=== PATIENT | female | born 1980 | race Caucasian/White ===

== ENCOUNTER 2016-11-10 16:13 | Emergency (ER) | payer OTHER ==
[~2016-11-10] VITALS: Wt 68.0 kg
[~2016-11-10 16:13] MED LIST: ALBUTEROL2.5 MG/0.5 INH; AMOXICILLIN500 M2 PO; CIPRO500 MG PO; CLINDAMYCIN HC300 MG PO; MIRENA52 MG IU; NAPROSYN500 MG PO; NEURONTIN300 MG PO; PREDNISONE20 M1 PO; PYRIDIUM100 MG PO; PYRIDIUM200 M1 PO; ROBITUSSIN DM 105 ML PO; SUBOXONE 8 MG-1 EACH SL
[2016-11-10 17:17] LABS: BILIRUBIN NEGATIVE (NEGATIVE); BLOOD NEGATIVE (NEGATIVE); CLARITY SL CLOUDY (CLEAR); COLOR YELLOW (YELLOW); GLUCOSE NEGATIVE (NEGATIVE); KETONE NEGATIVE (NEGATIVE); LEUKO ESTERASE 1+ (NEGATIVE); NITRITE NEGATIVE (NEGATIVE); PH 7.5 (5.0-9.0); PROTEIN NEGATIVE (NEGATIVE)
[2016-11-10 17:35] LABS: MUCOUS 1+; URINE REFLEX COMMENT YES (NO)
[2016-11-10] MEDS ORDERED: Zofran4 MG PO (18:14)
== END 2016-11-10 18:23 | disposition home or self-care (01) ==
LOC: ED 16:13
PROVIDERS: Nurse Practitioner Family
DX: Z20.2 Contact with and (suspected) exposure to infections with a predominantly sexual mode of transmission (principal); F17.200 Nicotine dependence, unspecified, uncomplicated; Z88.1 Allergy status to other antibiotic agents; Z88.2 Allergy status to sulfonamides

== ENCOUNTER 2016-11-26 11:07 | Inpatient (IN) | payer OTHER ==
[~2016-11-26] VITALS: Ht 170.2 cm; Wt 73.5 kg
--- NOTE | ~2016-11-26 | EKG ---
[place], [place] ELECTROCARDIOGRAM REPORT NAME: DESIREE MCDONNELL UNIT #: [id number] ROOM: 412 DOCTOR: ANA OLSON MD BIRTHDATE: [birth year] DOS: 11/26/2016 TIME: 14:57 FINDINGS: 1. Sinus rhythm with sinus arrhythmia and sinus bradycardia at a rate of 45. 2. Nonspecific mid precordial T wave abnormalities. 3. Abnormal electrocardiogram. ANA OLSON MD CM:EKGRPT:ELECTROCARDIOGRAM REPORT [id number] ANA OLSON MD
[~2016-11-26 11:07] MED LIST changes: +Zofran4 MG PO
[2016-11-26 12:00] VITALS: BP 120/89
[2016-11-26 12:21] LABS: BASO % 0.3 % (0.0-1.0); EOS % 0.7 % (1.0-4.0); HEMATOCRIT 42.1 % (37.0-47.0); HEMOGLOBIN 13.7 g/dl (12.0-16.0); LYMPH # 1.6 10*3/uL (1.3-4.4); LYMPH % 26.7 % (27.0-41.0); MEAN CELL VOLUME 84.4 fl (81.0-99.0); MEAN CORPUSCULAR HGB 27.5 pg (27.0-31.0); MEAN CORPUSCULAR HGB CONC 32.5 g/dl (33.0-37.0); MEAN PLATELET VOLUME 11.9 fl (9.6-12.3); MONO # 0.4 10*3/uL (0.1-1.0); MONO % 7.5 % (3.0-9.0); NEUT # 3.8 10*3/uL (2.3-7.9); NEUT % 64.6 % (47.0-73.0); PLATELET COUNT AUTOMATED 119 10*3/uL (130-400); RED BLOOD COUNT 4.99 10*6/uL (4.10-5.10); RED CELL DISTRI WIDTH 13.2 % (0-14.5); WHITE BLOOD COUNT 5.9 10*3/uL (4.8-10.8)
[2016-11-26 12:35] LABS: ALBUMIN 3.9 gm/dl (3.1-4.5); ALKALINE PHOSPHATASE 97 U/L (45-117); BILIRUBIN, TOTAL 0.4 mg/dl (0.2-1.0); BUN 15 mg/dl (7-24); CARBON DIOXIDE 24 mmol/L (21-32); CHLORIDE 105 mmol/L (98-107); EST GLOM FILT AFRICAN AMERICAN > 60 ml/min; GLUCOSE 107 mg/dL (65-99); POTASSIUM 4.3 mmol/L (3.5-5.1); SGOT/AST 8 IU/L (3-35); SGPT/ALT 18 U/L (12-78); SODIUM 137 mmol/L (136-145); TOTAL PROTEIN 8.7 gm/dL (6.4-8.2)
[2016-11-26 12:37] LABS: PROTHROMBIN TIME 10.9 SECONDS (9.0-12.4)
[2016-11-26 13:51] LABS: BILIRUBIN NEGATIVE (NEGATIVE); BLOOD NEGATIVE (NEGATIVE); CLARITY SL CLOUDY (CLEAR); COLOR YELLOW (YELLOW); GLUCOSE NEGATIVE (NEGATIVE); KETONE NEGATIVE (NEGATIVE); LEUKO ESTERASE 1+ (NEGATIVE); NITRITE NEGATIVE (NEGATIVE); PROTEIN NEGATIVE (NEGATIVE); UROBILINOGEN 0.2 E.U./dl (0.2-1.0)
[2016-11-26 13:58] LABS: URINE AMPHETAMINES < 1000 (1000ng/ml); URINE BARBITURATES < 200 (200ng/ml); URINE COCAINE < 300 (300ng/ml)
[2016-11-26 14:04] LABS: BACTERIA TRACE; EPITHELIAL CELLS 40-45; RBC 0-2 rbc/hpf (0-2); URINE REFLEX COMMENT YES (NO)
[2016-11-26 16:00] VITALS: BP 110/73
[2016-11-26 20:00] VITALS: BP 122/61
[2016-11-27] VITALS: BP 100/51
[2016-11-27 07:07] LABS: HIV 1+2 AB + HIV1 P24 AG Non Reactive (Non Reactive)
[2016-11-27 08:00] VITALS: BP 109/58
[2016-11-27 12:00] VITALS: BP 96/58
[2016-11-27 16:00] VITALS: BP 101/55
== END 2016-11-27 18:00 | disposition left against medical advice (07) | DRG 894 ==
LOC: 4E 11:07
PROVIDERS: Internal Medicine
DX: F11.23 Opioid dependence with withdrawal (principal); D69.6 Thrombocytopenia, unspecified; N39.0 Urinary tract infection, site not specified; F13.239 Sedative, hypnotic or anxiolytic dependence with withdrawal, unspecified; F10.239 Alcohol dependence with withdrawal, unspecified; Y90.9 Presence of alcohol in blood, level not specified; G25.81 Restless legs syndrome; F41.9 Anxiety disorder, unspecified; J34.89 Other specified disorders of nose and nasal sinuses; R73.9 Hyperglycemia, unspecified; F14.10 Cocaine abuse, uncomplicated; B18.2 Chronic viral hepatitis C; J45.909 Unspecified asthma, uncomplicated; Z72.0 Tobacco use; Z82.49 Family history of ischemic heart disease and other diseases of the circulatory system; Z88.1 Allergy status to other antibiotic agents; Z79.899 Other long term (current) drug therapy; Z71.6 Tobacco abuse counseling

== ENCOUNTER 2017-01-01 20:26 | Emergency (ER) | payer OTHER ==
[~2017-01-01] VITALS: Ht 170.1 cm; Wt 68.0 kg
[2017-01-01] MEDS ORDERED: BUPRENORPHINE HY8 MG SL (20:53)
[2017-01-01] MEDS ORDERED: PAIN & FEVER R325 MG PO (21:12)
== END 2017-01-01 23:24 | disposition home or self-care (01) ==
LOC: ED 20:26
DX: O92.6 Galactorrhea (principal); R51 Headache; I77.6 Arteritis, unspecified; F17.200 Nicotine dependence, unspecified, uncomplicated; F41.9 Anxiety disorder, unspecified; J45.909 Unspecified asthma, uncomplicated; Z88.1 Allergy status to other antibiotic agents; Z88.2 Allergy status to sulfonamides

== ENCOUNTER 2017-04-29 17:23 | Emergency (ER) | payer OTHER ==
[~2017-04-29] VITALS: Ht 167.6 cm; Wt 72.6 kg
--- NOTE | ~2017-04-29 | EKG ---
[place], [place] ELECTROCARDIOGRAM REPORT NAME: DESIREE MCDONNELL UNIT #: [id number] ROOM: DOCTOR: TANGELA SANABRIA MD BIRTHDATE: [birth year] DOS: 04/29/2017 TIME: 1739 hours. Normal sinus rhythm at 84 beats per minute. The tracing is normal. No previous tracing is available for comparison. TANGELA SANABRIA MD Calli Rider NP CM:EKGRPT:ELECTROCARDIOGRAM REPORT [phone] TANGELA SANABRIA MD
[~2017-04-29 17:23] MED LIST changes: +BUPRENORPHINE HY8 MG SL; +PAIN & FEVER R325 MG PO
[2017-04-29] MEDS ORDERED: SUBOXONE 8 MG-1 EACH SL (17:36)
[2017-04-29 17:54] LABS: BASO % 0.2 % (0.0-1.0); EOS # 0.1 10*3/uL (0.0-0.4); EOS % 1.9 % (1.0-4.0); HEMATOCRIT 41.5 % (37.0-47.0); HEMOGLOBIN 13.9 g/dl (12.0-16.0); LYMPH # 1.5 10*3/uL (1.3-4.4); MEAN CELL VOLUME 83.7 fl (81.0-99.0); MEAN CORPUSCULAR HGB CONC 33.5 g/dl (33.0-37.0); MEAN PLATELET VOLUME 11.9 fl (9.6-12.3); MONO # 0.4 10*3/uL (0.1-1.0); MONO % 8.7 % (3.0-9.0); NEUT # 2.7 10*3/uL (2.3-7.9); PLATELET COUNT AUTOMATED 81 10*3/uL (130-400); RED BLOOD COUNT 4.96 10*6/uL (4.10-5.10); RED CELL DISTRI WIDTH 13.2 % (0-14.5); WHITE BLOOD COUNT 4.7 10*3/uL (4.8-10.8)
[2017-04-29 18:04] LABS: ACT PARTIAL THROMBO TIME 29.5 SECONDS (20.8-31.5); INTERNATIONAL NORM RATIO 1.1 (2.0-3.5)
[2017-04-29 18:18] LABS: ALBUMIN 3.5 gm/dl (3.1-4.5); ALKALINE PHOSPHATASE 143 U/L (45-117); BUN 14 mg/dl (7-24); CHLORIDE 102 mmol/L (98-107); CKMB 0.5 ng/ml (0.5-3.6); CPK 61 U/L (26-192); LIPASE 73 U/L (73-393); MAGNESIUM 1.5 mg/dL (1.5-2.1); POTASSIUM 3.9 mmol/L (3.5-5.1); SGOT/AST 75 IU/L (3-35); SGPT/ALT 164 U/L (12-78); SODIUM 136 mmol/L (136-145); TOTAL PROTEIN 7.6 gm/dL (6.4-8.2)
[2017-04-29 18:20] LABS: BETA-HCG, QUANT < 1.0 mIU/mL (1-3); TROPONIN I < 0.015 ng/ml (<0.045)
[2017-04-29] MEDS ORDERED: PEPCID20 MG PO (19:03)
[2017-04-29] MEDS ORDERED: PREDNISONE20 M1 PO (19:03)
== END 2017-04-29 19:37 | disposition home or self-care (01) ==
LOC: ED 17:23
PROVIDERS: Emergency Medicine
DX: R07.9 Chest pain, unspecified (principal); R06.02 Shortness of breath; M25.562 Pain in left knee; R21 Rash and other nonspecific skin eruption; J45.909 Unspecified asthma, uncomplicated; F11.10 Opioid abuse, uncomplicated; F14.10 Cocaine abuse, uncomplicated; Z88.1 Allergy status to other antibiotic agents

== ENCOUNTER 2017-10-03 06:31 | Emergency (ER) | payer SELFPAY ==
[~2017-10-03] VITALS: Wt 72.6 kg
[~2017-10-03 06:31] MED LIST changes: +PEPCID20 MG PO
[2017-10-03 06:56] LABS: BILIRUBIN 2+ (NEGATIVE); BLOOD 3+ (NEGATIVE); CLARITY CLOUDY (CLEAR); COLOR YELLOW (YELLOW); GLUCOSE NEGATIVE (NEGATIVE); KETONE TRACE (NEGATIVE); LEUKO ESTERASE 2+ (NEGATIVE); NITRITE POSITIVE (NEGATIVE); PH 5.5 (5.0-9.0); SPECIFIC GRAVITY >= 1.030 (1.005-1.030)
[2017-10-03 07:05] LABS: RBC TNTC rbc/hpf (0-2); WBC TNTC wbc/hpf (0-5)
[2017-10-03] MEDS ORDERED: PYRIDIUM100 MG PO (07:54)
[2017-10-03] MEDS ORDERED: DIFLUCAN150 MG PO (07:54)
[2017-10-03] MEDS ORDERED: LEVOFLOXACIN500 MG PO (07:54)
== END 2017-10-03 08:05 | disposition home or self-care (01) ==
LOC: ED 06:31
PROVIDERS: Emergency Medicine Emergency Medical Services
DX: N39.0 Urinary tract infection, site not specified (principal); R73.9 Hyperglycemia, unspecified; J45.909 Unspecified asthma, uncomplicated; F17.200 Nicotine dependence, unspecified, uncomplicated; F10.10 Alcohol abuse, uncomplicated; F41.9 Anxiety disorder, unspecified; Z88.2 Allergy status to sulfonamides; Z88.8 Allergy status to other drugs, medicaments and biological substances; Z79.899 Other long term (current) drug therapy

== ENCOUNTER 2017-12-14 13:34 | Emergency (ER) | payer OTHER ==
[~2017-12-14] VITALS: Ht 170.1 cm; Wt 68.0 kg
[~2017-12-14 13:34] MED LIST changes: +DIFLUCAN150 MG PO; +LEVOFLOXACIN500 MG PO
[2017-12-14 14:20] LABS: BASO % 0.2 % (0.0-1.0); EOS # 0.1 10*3/uL (0.0-0.4); EOS % 1.9 % (1.0-4.0); HEMATOCRIT 37.5 % (37.0-47.0); HEMOGLOBIN 12.6 g/dl (12.0-16.0); LYMPH # 0.8 10*3/uL (1.3-4.4); LYMPH % 19.3 % (27.0-41.0); MEAN CELL VOLUME 84.5 fl (81.0-99.0); MEAN CORPUSCULAR HGB 28.4 pg (27.0-31.0); MEAN CORPUSCULAR HGB CONC 33.6 g/dl (33.0-37.0); MEAN PLATELET VOLUME 11.7 fl (9.6-12.3); MONO # 0.4 10*3/uL (0.1-1.0); MONO % 9.9 % (3.0-9.0); NEUT # 2.9 10*3/uL (2.3-7.9); NEUT % 68.5 % (47.0-73.0); PLATELET COUNT AUTOMATED 80 10*3/uL (130-400); RED BLOOD COUNT 4.44 10*6/uL (4.10-5.10); RED CELL DISTRI WIDTH 13.5 % (0-14.5); WHITE BLOOD COUNT 4.3 10*3/uL (4.8-10.8)
[2017-12-14 14:36] LABS: BILIRUBIN NEGATIVE (NEGATIVE); BLOOD 1+ (NEGATIVE); CLARITY SL CLOUDY (CLEAR); COLOR YELLOW (YELLOW); GLUCOSE NEGATIVE (NEGATIVE); KETONE TRACE (NEGATIVE); LEUKO ESTERASE NEGATIVE (NEGATIVE); NITRITE NEGATIVE (NEGATIVE); SPECIFIC GRAVITY 1.025 (1.005-1.030)
[2017-12-14 14:37] LABS: ALBUMIN 3.5 gm/dl (3.1-4.5); BUN 10 mg/dl (7-24); CHLORIDE 102 mmol/L (98-107); CREATININE 0.63 mg/dL (0.55-1.02); LIPASE 58 U/L (73-393); POTASSIUM 3.6 mmol/L (3.5-5.1); SGOT/AST 8 IU/L (3-35); SGPT/ALT 18 U/L (12-78); SODIUM 133 mmol/L (136-145); TOTAL PROTEIN 7.7 gm/dL (6.4-8.2)
[2017-12-14 14:38] LABS: ALKALINE PHOSPHATASE 72 U/L (45-117)
[2017-12-14 14:47] LABS: BACTERIA TRACE; MUCOUS 1+
[2017-12-14 14:58] LABS: B-hCG (QUALITATIVE) POSITIVE (NEGATIVE)
[2017-12-14] MEDS ORDERED: UNISOM25 M1 PO (15:34)
[2017-12-14] MEDS ORDERED: VITAMIN B-625 M1 PO (15:34)
[2017-12-14] MEDS ORDERED: PRENATA CHEWAB1 EACH PO (15:35)
== END 2017-12-14 15:14 | disposition home or self-care (01) ==
LOC: ED 13:34
PROVIDERS: Emergency Medicine
DX: O26.891 Other specified pregnancy related conditions, first trimester (principal); O99.331 Smoking (tobacco) complicating pregnancy, first trimester; R11.0 Nausea; K59.00 Constipation, unspecified; J45.909 Unspecified asthma, uncomplicated; F17.200 Nicotine dependence, unspecified, uncomplicated; Z88.1 Allergy status to other antibiotic agents; Z3A.01 Less than 8 weeks gestation of pregnancy

== ENCOUNTER 2018-05-15 19:45 | Emergency (ER) | payer OTHER ==
[~2018-05-15] VITALS: Ht 1724 cm; Wt 64.4 kg
[~2018-05-15 19:45] MED LIST changes: +PRENATA CHEWAB1 EACH PO; +UNISOM25 M1 PO; +VITAMIN B-625 M1 PO
[2018-05-15 21:00] LABS: BILIRUBIN 1+ (NEGATIVE); BLOOD NEGATIVE (NEGATIVE); CLARITY SL CLOUDY (CLEAR); COLOR YELLOW (YELLOW); GLUCOSE NEGATIVE (NEGATIVE); KETONE NEGATIVE (NEGATIVE); LEUKO ESTERASE NEGATIVE (NEGATIVE); NITRITE NEGATIVE (NEGATIVE); UROBILINOGEN 0.2 E.U./dl (0.2-1.0)
[2018-05-15 21:08] LABS: BACTERIA 1+; MUCOUS 1+
[2018-05-15 21:09] LABS: URINE AMPHETAMINES < 1000 (1000ng/ml); URINE BARBITURATES < 200 (200ng/ml); URINE BENZODIAZEPINES > 200 (200ng/ml); URINE CANNABINOIDS (THC) > 50 (50ng/ml); URINE COCAINE > 300 (300ng/ml); URINE METHADONE < 300 (300ng/ml); URINE OPIATES < 300 (300ng/ml); URINE PHENCYCLIDINE < 25 (25ng/ml)
== END 2018-05-15 22:30 ==
LOC: ED 19:45
PROVIDERS: Nurse Practitioner Family
DX: O26.891 Other specified pregnancy related conditions, first trimester (principal); O99.331 Smoking (tobacco) complicating pregnancy, first trimester; L02.415 Cutaneous abscess of right lower limb; J45.909 Unspecified asthma, uncomplicated; Z3A.01 Less than 8 weeks gestation of pregnancy; Z88.2 Allergy status to sulfonamides

== ENCOUNTER → 2018-12-15 | Outpatient (CLI) | payer OTHER ==
[2018-12-15 14:09] LABS: BASO % 0.3 % (0.0-1.0); EOS # 0.1 10*3/uL (0.0-0.4); EOS % 1.3 % (1.0-4.0); HEMATOCRIT 39.1 % (37.0-47.0); HEMOGLOBIN 12.8 g/dl (12.0-16.0); LYMPH # 1.9 10*3/uL (1.3-4.4); LYMPH % 20.2 % (27.0-41.0); MEAN CELL VOLUME 87.7 fl (81.0-99.0); MEAN CORPUSCULAR HGB 28.7 pg (27.0-31.0); MEAN CORPUSCULAR HGB CONC 32.7 g/dl (33.0-37.0); MEAN PLATELET VOLUME 12.9 fl (9.6-12.3); MONO # 0.7 10*3/uL (0.1-1.0); MONO % 7.1 % (3.0-9.0); NEUT # 6.6 10*3/uL (2.3-7.9); NEUT % 70.5 % (47.0-73.0); PLATELET COUNT AUTOMATED 120 10*3/uL (130-400); RED BLOOD COUNT 4.46 10*6/uL (4.10-5.10); RED CELL DISTRI WIDTH 13.8 % (0-14.5); WHITE BLOOD COUNT 9.3 10*3/uL (4.8-10.8)
[2018-12-15 14:26] LABS: ALBUMIN 2.8 gm/dl (3.1-4.5); ALKALINE PHOSPHATASE 192 U/L (45-117); BUN 14 mg/dl (7-24); CHLORIDE 104 mmol/L (98-107); CREATININE 0.58 mg/dL (0.55-1.02); POTASSIUM 4.2 mmol/L (3.5-5.1); SGOT/AST 7 IU/L (3-35); SGPT/ALT 15 U/L (12-78); SODIUM 135 mmol/L (136-145); TOTAL PROTEIN 7.7 gm/dL (6.4-8.2)
== END | disposition home or self-care (01) ==
LOC: LAB 13:07
PROVIDERS: Internal Medicine Cardiovascular Disease
DX: I38 Endocarditis, valve unspecified (principal)